=== PATIENT | male | born 1975 | race Caucasian/White ===

== ENCOUNTER 2017-04-15 07:33 | Emergency (ER) | payer BC ==
--- NOTE | 2017-04-15 07:54 | Emergency Department Record ---
History of Present Illness - General Chief complaint: Extremity Problem Stated complaint: ARM PAIN Time Seen by Provider: 04/15/17 07:42 Source: Patient Mode of Arrival: Ambulatory Limitations: No limitations - History of Present Illness Initial comments: The patient is here due to R forearm pain for 2 days. The pain is over the R medial dorsal distal forearm area over the Abductor Pollicis Longus and Extensor Pollicis Brevis muscles. 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 He denies any trauma, injury, fall, fever, chills, or puncture wounds. MD Complaint: Extremity pain Onset/Timin -: Days(s) Location: Right, Arm History of Same: No Severity scale (1-10): 4 Quality: Sharp Consistency: Constant Improves with: Immobilization Worsens with: Palpation, Other (ROM) Associated Symptoms: Denies other symptoms - Related Data Allergies Allergy/AdvReac Type Severity Reaction Status Date / Time No Known Drug Allergies Allergy Verified 04/15/17 07:37 Travel Screening - Travel/Exposure Within Last 30 Days Have you traveled within the last 30 days?: No - Travel/Exposure Within Last Year Have you traveled outside the [place] in the last year?: No - Additonal Travel Details Have you been exposed to anyone with a communicable illness?: No - Travel Symptoms Symptom Screening: None Review of Systems Constitutional: Denies: Chills, Fever Past Medical History - SOCIAL HISTORY Smoking Status: Current every day smoker Alcohol Use: Occasional Drug Use: None - RESPIRATORY Hx Respiratory Disorders: No - CARDIOVASCULAR Hx Cardio Disorders: Yes Comment:: Pericarditis - NEURO Hx Neuro Disorders: No - GI Hx GI Disorders: No - Hx Genitourinary Disorders: Yes Hx Kidney Stones: Yes (10 years ago) - ENDOCRINE Hx Endocrine Disorders: No - MUSCULOSKELETAL Hx Musculoskeletal Disorders: No - PSYCH Hx Psych Problems: No - HEMATOLOGY/ONCOLOGY Hx Hematology/Oncology Disorders: No Family Medical History Any Significant Family History?: Yes Hx Heart Disease: Father, Grandparents Physical Exam - General General Appearance: Alert, Cooperative, No acute distress - Head Head exam: Atraumatic, Normocephalic - Extremities Extremities exam: Normal capillary refill, Tenderness (There is point tenderness over the APL and EPB muscles. There is a mildly positive Corbin' s test. There is no warmth, erythema or any signs of infection present over the tender area.), Other (The R hand and arm are NVI.). negative: Normal inspection (There may be very mild swelling over the APL and EPB muscles over the medial dorsal distal forearm. ), Joint swelling Image of Full Body: 1 - Area of pain and tenderness. Course Vital Signs 04/15/17 07:36 Temperature 97.6 F Pulse Rate 64 Respiratory 18 Rate Blood Pressure 117/71 Pulse Ox 96 - Reevaluation(s) Reevaluation #1: I did discuss the diagnosis of tenosynovitis with the patient. He is to wear the thumb spica splint for a week and try to not aggravate the arm at work. He is to see his PCP next week for recheck of the wrist pain. 04/15/17 08:15 Medical Decision Making - Data Complexity MDM Data: X-Ray Ordered and/or Reviewed - Radiology Data Radiology results: Report reviewed (R forearm: Neg.) Disposition Disposition: Discharge Clinical Impression: Tenosynovitis of forearm Disposition: Home, Self-Care Condition: (2) Stable Instructions: De Quervain Disease (ED) Additional Instructions: Please wear the splint for a week. Take your home Alleve for pain and try to ice the affected area when possible. Please do not use the R arm at work for 4 days. Please see your PCP if not better by Wednesday of next week. Forms: Patient Portal Access Quality - Quality Measures Quality Measures: N/A - Blood Pressure Screening View Details: Yes Does Patient Have Any of the Following: No Blood Pressure Classification: Normal BP Reading Systolic Measurement: 117 Diastolic Measurement: 71 Screening for High Blood Pressure: < Normal BP, F/U Not Required > [G8783]
--- NOTE | 2017-04-15 10:39 | RADIOLOGY REPORT ---
EXAM: RIGHT FOREARM HISTORY: INJURY. TECHNIQUE: Two views of the right forearm were performed. FINDINGS: No evidence of fracture or dislocation. No radiopaque foreign body. No lytic or blastic lesion. IMPRESSION: NEGATIVE RIGHT FOREARM EXAMINATION. JOB NUMBER: [id number] MTDD
== END 2017-04-15 08:24 | disposition home or self-care (01) ==
LOC: ER 07:33
DX: M65.831 Other synovitis and tenosynovitis, right forearm (principal)
CPT/HCPCS: 99283

== ENCOUNTER 2018-05-27 09:08 | Emergency (ER) | payer SELFPAY ==
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
[2018-05-27] MEDS: KETOROLAC 30 MG/ML VIAL IM ONE (10:36)
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
== END 2018-05-27 11:40 | disposition home or self-care (01) ==
LOC: ER 09:08
DX: S16.1XXA Strain of muscle, fascia and tendon at neck level, initial encounter (principal); M54.6 Pain in thoracic spine; V43.52XA Car driver injured in collision with other type car in traffic accident, initial encounter; Y92.410 Unspecified street and highway as the place of occurrence of the external cause; F17.210 Nicotine dependence, cigarettes, uncomplicated
CPT/HCPCS: 99283; 96372; 99284; 72050; 72072; J1885

== ENCOUNTER 2018-07-18 22:09 | Emergency (ER) | payer BC ==
[2018-07-18] MEDS ORDERED: KETOROLAC 30 MG/ML VIAL IVP ONE (22:20)
--- NOTE | 2018-07-18 22:26 | Emergency Department Record ---
History of Present Illness - General Chief complaint: Lower Extremity Pain Stated complaint: BOTH LEG PAIN, LT LEG SWELLING Time Seen by Provider: 07/18/18 22:15 Source: Patient Mode of Arrival: Ambulatory Limitations: No limitations - History of Present Illness Initial comments: 42 yo male presents to ED for evaluation of bilateral lower extremity pain symptoms that began approximately 10 years ago, have worsened over the past 2-3 weeks. Patient denies injury, does report pain to the knees/ankles bilaterally , worse left. Patient denies lower extremity weakness symptoms, denies fevers/ chills or current illness. Patient denies erythema to the lower extremities bilaterally. Patient did take Naprosyn earlier today that improved his symptoms somewhat. MD Complaint: Joint pain -: Week(s) Location: Bilateral History of Same: Yes Quality: Aching Consistency: Constant Improves with: Nothing Worsens with: Nothing Associated Symptoms: Denies other symptoms - Related Data Previous Rx's Medication Instructions Recorded Ibuprofen [Motrin] 800 mg PO Q6H PRN #60 tab 07/18/18 Allergies Allergy/AdvReac Type Severity Reaction Status Date / Time No Known Drug Allergies Allergy Verified 07/18/18 22:18 Review of Systems Constitutional: Denies: Chills, Fever, Malaise, Night sweats Eyes: Denies: Eye discharge, Eye pain ENT: Denies: Congestion, Ear pain, Epistaxis Respiratory: Denies: Cough, Dyspnea Cardiovascular: Denies: Chest pain, Dyspnea on exertion Endocrine: Denies: Fatigue, Heat or cold intolerance Gastrointestinal: Denies: Abdominal pain, Nausea, Vomiting Genitourinary: Denies: Incontinence, Retention Musculoskeletal: Reports: Myalgia. Denies: Arthralgia, Back pain, Gout Skin: Denies: Bruising, Change in color Neurological: Denies: Abnormal gait, Confusion, Headache, Seizure Psychiatric: Denies: Anxiety Hematological/Lymphatic: Denies: Anemia, Blood Clots Past Medical History - SOCIAL HISTORY Smoking Status: Current every day smoker - RESPIRATORY Hx Respiratory Disorders: No - CARDIOVASCULAR Hx Cardio Disorders: Yes Comment:: Pericarditis - NEURO Hx Neuro Disorders: No - GI Hx GI Disorders: No - Hx Genitourinary Disorders: Yes Hx Kidney Stones: Yes (10 years ago) - ENDOCRINE Hx Endocrine Disorders: No - MUSCULOSKELETAL Hx Musculoskeletal Disorders: No - PSYCH Hx Psych Problems: No - HEMATOLOGY/ONCOLOGY Hx Hematology/Oncology Disorders: No Family Medical History Hx Heart Disease: Father, Grandparents Physical Exam - General General Appearance: Alert, Oriented x3, Cooperative, Moderate distress Limitations: No limitations - Head Head exam: Atraumatic, Normocephalic, Normal inspection Head exam detail: negative: Abrasion, Contusion, Julien's sign, General tenderness, Hematoma, Laceration - Eye Eye exam: Normal appearance. negative: Conjunctival injection, Periorbital swelling, Periorbital tenderness, Scleral icterus - ENT Ear exam: negative: Auricular hematoma, Auricular trauma Nasal Exam: negative: Active bleeding, Discharge, Dried blood, Foreign body Mouth exam: negative: Drooling, Laceration, Muffled voice, Tongue elevation - Neck Neck exam: Normal inspection. negative: Meningismus, Tenderness - Respiratory Respiratory exam: Normal lung sounds bilaterally. negative: Rales, Respiratory distress, Rhonchi, Stridor - Cardiovascular Cardiovascular Exam: Regular rate, Normal rhythm, Normal heart sounds Peripheral Pulses: 3+: Dorsalis Pedis (R), Dorsalis Pedis (L) - GI/Abdominal GI/Abdominal exam: Soft. negative: Rebound, Rigid, Tenderness - Rectal Rectal exam: Deferred - exam: Deferred - Extremities Extremities exam: Normal inspection, Full ROM, Other (Normal examination of the lower extremities bilaterally. No effusions noted, no erythema, strong DPP bilaterally, EHL 5/5 and symmetric, no evidence for cellulitis or septic joint on examination.). negative: Joint swelling, Pedal edema, Tenderness - Back Back exam: Denies: CVA tenderness (R), CVA tenderness (L) - Neurological Neurological exam: Alert, Normal gait, Oriented X3 - Psychiatric Psychiatric exam: Normal affect, Normal mood - Skin Skin exam: Normal color. negative: Abrasion Type of lesion: negative: abrasion Course Vital Signs 07/18/18 22:16 Temperature 97.5 F L Pulse Rate [ 66 Pulse Ox Probe] Respiratory 24 Rate Blood Pressure 137/66 [Left Arm] Pulse Ox 98 - Reevaluation(s) Reevaluation #1: 07/18/18 23:02 Laboratory studies were reviewed and are grossly unremarkable for an acute process. Patient reports improvement in his pain symptoms and appears stable for discharge at this time. Medical Decision Making - Lab Data Result diagrams: 07/18/18 22:25 07/18/18 22:25 Disposition Disposition: Discharge Clinical Impression: Arthralgia Qualifiers: Joint pain location: ankle Laterality: bilateral Qualified Code(s): M25.571 - Pain in right ankle and joints of right foot Disposition: Home, Self-Care Condition: (2) Stable Instructions: Arthralgia (ED) Additional Instructions: Return to ED if your symptoms worsen or if you have any concerns. Motrin 800 mg as directed. Follow-up with your family doctor in 3-5 days as directed. Prescriptions: Ibuprofen [Motrin] 800 mg PO Q6H PRN #60 tab PRN Reason: Pain - Mod To Severe (5-10) Forms: Patient Portal Access Time of Disposition: 23:03 Quality - Quality Measures Quality Measures: N/A - Blood Pressure Screening Does Patient Have Any of the Following: No Blood Pressure Classification: Pre-Hypertensive BP Reading Systolic Measurement: 137 Diastolic Measurement: 66 Screening for High Blood Pressure: < Pre-Hypertensive BP, F/U Documented > [ G8950] Pre-Hypertensive Follow-up Interventions: Referral to alternative/primary care provider.
[2018-07-18 22:35] LABS: BASO % 0.4 % (0-6); EOS % 1.3 % (0-6); GRAN % 54.2 % (47-80); HEMATOCRIT 44.7 % (42.0-52.0); HEMOGLOBIN 14.8 gm/dl (14.0-18.0); LYMPH % 36.8 % (16-45); MEAN CORPUSCULAR HEMOGLOBIN 29.5 pg (27-33); MEAN CORPUSCULAR HGB CONC 33.1 g/dl (32-36); MONO % 7.3 % (0-9); PLATELET COUNT 213 K/uL (130-400); RED BLOOD COUNT 5.02 M/uL (4.40-5.70); RED CELL DISTRIBUTION WIDTH 13.5 % (11.5-14.5); WHITE BLOOD COUNT W/O DIFF 7.7 K/uL (4.2-12.2)
[2018-07-18 22:43] LABS: BLOOD UREA NITROGEN 16 mg/dL (6-20); CREATININE 0.9 mg/dL (0.7-1.2); EST GLOMERULAR FILTRATION RATE > 60 mL/min; TOTAL PROTEIN 6.6 g/dL (6.6-8.7)
[2018-07-18 22:45] LABS: GLUCOSE,RANDOM 133 mg/dL (74-109)
[2018-07-18 22:48] LABS: ALB/GLOB RATIO 1.5 (1.1-1.8); ALKALINE PHOSPHATASE 67 U/L (55-149); ALT/SGPT 23 U/L (<41); AST/SGOT 20 U/L (10.0-50.0); C-REACTIVE PROTEIN 0.42 mg/dL (<0.5)
[2018-07-18 23:06] LABS: ERYTHROCYTE SEDIMENTATION RATE 2 mm/hr (0-15)
== END 2018-07-18 23:12 | disposition home or self-care (01) ==
LOC: ER 22:09
DX: M25.571 Pain in right ankle and joints of right foot (principal); M25.572 Pain in left ankle and joints of left foot; F17.210 Nicotine dependence, cigarettes, uncomplicated
CPT/HCPCS: 80053; 85025; 85651; 86140; 96374; 99284; J1885

== ENCOUNTER 2019-01-24 06:12 | Emergency (ER) | payer BC, OTHER ==
[2019-01-24] MEDS ORDERED: ASPIRIN 81 MG CHEWABLE TABLET PO ONE (06:33)
[2019-01-24] MEDS: NITROGLYCERIN 0.4MG SL TABLET #25 BTL SL PRN ×3 (06:40→06:53)
--- NOTE | 2019-01-24 06:44 | Emergency Department Record ---
History of Present Illness - General Chief Complaint: Chest Pain Stated Complaint: CHEST PAIN, JAW PAIN Time Seen by Provider: 01/24/19 06:29 Source: Patient Mode of Arrival: Ambulatory Limitations: No limitations - History of Present Illness Initial Comments: pt awakened with sharp chest pain that is waxing and waning. pt has no n/v/sob. pt thinks he had something similar years ago when he had pericarditis. he smokes cigars. he has a fam hx of heart dsease. he denies htn and hi chol MD Complaint: Chest pain Onset/Timin -: Minutes(s) Onset: Awoke with symptoms Pain Location: Substernal Pain Radiation: None Severity: Moderate Severity scale (1-10): 8 Quality: Sharp Consistency: Constant Improves With: Nothing Worsens With: Nothing Treatments Prior to Arrival: None - Related Data Home Medications Medication Instructions Recorded Confirmed Last Taken No Home Med [NO HOME MEDS] 01/24/19 01/24/19 Unknown Allergies Allergy/AdvReac Type Severity Reaction Status Date / Time No Known Drug Allergies Allergy Verified 07/18/18 22:18 Travel Screening - Travel/Exposure Within Last 30 Days Have you traveled within the last 30 days?: No - Travel/Exposure Within Last Year Have you traveled outside the [place] in the last year?: No - Additonal Travel Details Have you been exposed to anyone with a communicable illness?: No - Travel Symptoms Symptom Screening: None Review of Systems Reviewed: No additional complaints except as noted below Constitutional: Reports: As per HPI. Denies: Chills, Fever, Malaise, Night sweats, Weakness, Weight change Eyes: Reports: As per HPI. Denies: Eye discharge, Eye pain, Photophobia, Vision change ENT: Reports: As per HPI. Denies: Congestion, Dental pain, Ear pain, Epistaxis, Hearing loss, Throat pain Respiratory: Reports: As per HPI. Denies: Cough, Dyspnea, Hemoptysis, Stridor, Wheezes Cardiovascular: Reports: As per HPI, Chest pain. Denies: Arrhythmia, Dyspnea on exertion, Edema, Murmurs, Orthopnea, Palpitations, Paroxysmal nocturnal dyspnea, Rheumatic Fever, Syncope Endocrine: Reports: As per HPI. Denies: Fatigue, Heat or cold intolerance, Polydipsia, Polyuria Gastrointestinal: Reports: As per HPI. Denies: Abdominal pain, Constipation, Diarrhea, Hematemesis, Hematochezia, Melena, Nausea, Vomiting Genitourinary: Reports: As per HPI. Denies: Dysuria, Frequency, Hematuria, Incontinence, Retention, Testicular pain, Testicular mass, Urgency Musculoskeletal: Reports: As per HPI. Denies: Arthralgia, Back pain, Gout, Joint swelling, Myalgia, Neck pain Skin: Reports: As per HPI. Denies: Bruising, Change in color, Change in hair/nails, Lesions, Pruritus, Rash Neurological: Reports: As per HPI. Denies: Abnormal gait, Confusion, Headache, Numbness, Paresthesias, Seizure, Tingling, Tremors, Vertigo, Weakness Psychiatric: Reports: As per HPI. Denies: Anxiety, Auditory hallucinations, Depression, Homicidal thoughts, Suicidal thoughts, Visual hallucinations Hematological/Lymphatic: Reports: As per HPI. Denies: Anemia, Blood Clots, Easy bleeding, Easy bruising, Swollen glands Past Medical History - SOCIAL HISTORY Smoking Status: Current every day smoker Alcohol Use: Occasional Drug Use: Occasional Drug Use Detail:: Marijuana - RESPIRATORY Hx Respiratory Disorders: No - CARDIOVASCULAR Hx Cardio Disorders: Yes Comment:: Pericarditis - NEURO Hx Neuro Disorders: No - GI Hx GI Disorders: No - Hx Genitourinary Disorders: Yes Hx Kidney Stones: Yes (10 years ago) - ENDOCRINE Hx Endocrine Disorders: No - MUSCULOSKELETAL Hx Musculoskeletal Disorders: No - PSYCH Hx Psych Problems: No - HEMATOLOGY/ONCOLOGY Hx Hematology/Oncology Disorders: No Family Medical History Any Significant Family History?: Yes Hx Heart Disease: Father, Grandparents Physical Exam - General General Appearance: Alert, Oriented x3, Cooperative, Mild distress - Head Head exam: Normal inspection - Eye Eye exam: Normal appearance, PERRL, EOMI Pupils: Normal accommodation - ENT ENT exam: Normal exam, Mucous membranes moist, Normal external ear exam, Normal orophraynx Ear exam: Normal external inspection. negative: External canal tenderness Nasal Exam: Normal inspection. negative: Discharge, Sinus tenderness Mouth exam: Normal external inspection, Tongue normal Teeth exam: Normal inspection. negative: Dental caries Throat exam: Normal inspection. negative: Tonsillar erythema, Tonsillar exudate - Neck Neck exam: Normal inspection, Full ROM. negative: Tenderness - Respiratory Respiratory exam: Normal lung sounds bilaterally. negative: Respiratory distress - Cardiovascular Cardiovascular Exam: Normal rhythm, Normal heart sounds, Bradycardia - GI/Abdominal GI/Abdominal exam: Soft, Normal bowel sounds. negative: Tenderness - Rectal Rectal exam: Deferred - exam: Deferred - Extremities Extremities exam: Normal inspection, Full ROM, Normal capillary refill. negative: Tenderness - Back Back exam: Reports: Normal inspection, Full ROM. Denies: Muscle spasm, Rash noted, Tenderness - Neurological Neurological exam: Alert, CN II-XII intact, Normal gait, Oriented X3 - Psychiatric Psychiatric exam: Normal affect, Normal mood - Skin Skin exam: Dry, Intact, Normal color, Warm Course Vital Signs 01/24/19 06:16 Temperature 98.2 F Pulse Rate 57 L Respiratory 18 Rate Blood Pressure 130/82 Pulse Ox 97 - Reevaluation(s) Reevaluation #1: 01/24/19 06:4 01/24/19 06:49 01/24/19 07:18 pts pain is down to a 2/10 after 3 ntg [it was 8/10]. case d/w dr macario. Reevaluation #2: 01/24/19 07:22 ekg shows slightly more peaking of v3 and a hint of elevation off baseline in v5,v6. Medical Decision Making - Lab Data Result diagrams: 01/24/19 06:30 01/24/19 06:30 Disposition Disposition: Transfer Clinical Impression: Chest pain Qualifiers: Chest pain type: unspecified Qualified Code(s): R07.9 - Chest pain, unspecified Disposition: Acute Care Hospital Transfer Transfer To: [facility] Reason For Transfer: needs fiscal agent Accepting Physician: dr macario Time Discussed w/Accepting Physician: 07:21 Forms: Patient Portal Access Quality - Quality Measures Quality Measures: N/A - Blood Pressure Screening Does Patient Have Any of the Following: No Blood Pressure Classification: Pre-Hypertensive BP Reading Systolic Measurement: 130 Diastolic Measurement: 82 Screening for High Blood Pressure: < Pre-Hypertensive BP, F/U Documented > [G8950] Pre-Hypertensive Follow-up Interventions: Follow-up with rescreen every year.
[2019-01-24 06:45] LABS: ABSOLUTE NEUTROPHIL COUNT 4.56; BASO % 0.3 % (0-6); EOS % 1.8 % (0-6); GRAN % 63.3 % (47-80); HEMATOCRIT 45.7 % (42.0-52.0); HEMOGLOBIN 14.8 gm/dl (14.0-18.0); LYMPH % 26.7 % (16-45); MEAN CELL VOLUME 91.2 fl (81-97); MEAN CORPUSCULAR HEMOGLOBIN 29.5 pg (27-33); MEAN CORPUSCULAR HGB CONC 32.4 g/dl (32-36); MONO % 7.9 % (0-9); PLATELET COUNT 231 K/uL (130-400); RED BLOOD COUNT 5.01 M/uL (4.40-5.70); RED CELL DISTRIBUTION WIDTH 14.3 % (11.5-14.5); WHITE BLOOD COUNT W/O DIFF 7.2 K/uL (4.2-12.2)
[2019-01-24 06:54] LABS: BLOOD UREA NITROGEN 16 mg/dL (6-20); CREATININE 0.9 mg/dL (0.7-1.2); EST GLOMERULAR FILTRATION RATE > 60 mL/min
[2019-01-24 06:57] LABS: GLUCOSE,RANDOM 116 mg/dL (74-109)
[2019-01-24 07:00] LABS: ALKALINE PHOSPHATASE 73 U/L (40-129); ALT/SGPT 13 U/L (<41); AST/SGOT 19 U/L (10.0-50.0); CREATINE PHOSPHOKINASE 206 U/L (39-308)
--- NOTE | 2019-01-24 11:02 | RADIOLOGY REPORT ---
EXAM: CHEST, TWO VIEWS HISTORY: MID STERNAL CHEST PAIN SINCE THIS MORNING. TECHNIQUE: PA and lateral upright views of the chest were obtained. Comparison: 06/17/15. FINDINGS: The heart, mediastinum, and pulmonary vasculature are normal. There are no visible acute infiltrates or effusions. There is no pneumothorax. The bones appear intact. IMPRESSION: NO ACUTE CHEST PATHOLOGY IDENTIFIED. JOB NUMBER: [id number] MTDD
== END 2019-01-24 08:45 | disposition short-term general hospital (02) ==
LOC: ER 06:12
DX: R07.2 Precordial pain (principal)
CPT/HCPCS: 71046; 80053; 82550; 82553; 84484; 85025; 85379; 99285